=== PATIENT | female | born 1960 | race Caucasian/White ===

== ENCOUNTER 2017-06-20 11:24 | Emergency (ER) | payer OTHER ==
[~2017-06-20 11:24] MED LIST: EPIP0.3I IM; PRED20 PO
[2017-06-20 11:31] VITALS: BP 146/65; PULSE 92; RESP 22; TEMP 97.8; O2SAT 98
[2017-06-20] MEDS ORDERED: [UNRECOGNIZED DRUG - OTHER] (11:36)
[2017-06-20] MEDS ORDERED: INH PO (11:37)
[2017-06-20] MEDS ORDERED: SODIUM CHLOR 0.9% 1000 ML INJ 1,000 ML IV SCH (11:39)
[2017-06-20] MEDS ORDERED: SODIUM CHLORIDE 0.9% FLUSH 10 ML FLUSH IV FLUSH PRN (11:45)
[2017-06-20] MEDS ORDERED: RESP: ALBUTEROL 2.5 MG/3 ML NEB (SCH) INH ONE (11:45)
[2017-06-20] MEDS ORDERED: FAMOTIDINE 20 MG/2 ML VIAL IV PUSH ONE (11:45)
[2017-06-20] MEDS ORDERED: diphenhydrAMINE HCL 50 MG/ML VIAL IVP ONE (11:45)
[2017-06-20] MEDS ORDERED: methylPREDNISolone SOD SUCC 125 MG/2 ML VIAL IVP ONE (11:45)
--- NOTE | 2017-06-20 12:01 | PD ---
HPI Chief Complaint: Allergic/Adverse Reaction Time Seen by Provider: 11:33 Travel History International Travel<30 days: No Contact w/Intl Traveler<30days: No Traveled to known affect area: No History of Present Illness HPI The patient is a 56-year-old female who presents emergency department for allergic reaction to red ant bites. 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 The patient states she suffered multiple bites to the feet earlier today, developed a diffuse rash from the leg superiorly and shortness of breath with chest tightness. The patient self administered an epinephrine pen approximately 10- 15 minutes prior to arrival which has helped the patient's symptoms. The patient still complains of mild chest tightness without any wheezing, does have a history of asthma. She denies any swelling of the tongue or lips. She denies any nausea, vomiting, or abdominal pain. Symptoms are moderate, exacerbated after being exposed rate and bites, and slightly alleviated with an epinephrine pen. PFS Past Medical History Narrative Medical Asthma, allergic reaction to red ant bites Respiratory: Yes (LATENT TB) ?: Not Past Surgical History Narrative Surgical noncontributory Social History Alcohol Use: No Tobacco Use: No Substance Use: No Allergies-Medications (Allergen,Severity, Reaction): Coded Allergies: esomeprazole (Verified Allergy, Unknown, 06/20/17) tramadol (Verified Allergy, Unknown, 06/20/17) Uncoded Allergies: RED ANTS (Allergy, Severe, Anaphylaxis, 06/20/17) Reported Meds & Prescriptions Reported Meds & Active Scripts Active Reported [Inh] 100 Mg PO DAILY Review of Systems Except as stated in HPI: all other systems reviewed are Neg HENT: No: Lightheadedness Cardiovascular: Positive: Chest Pain or Discomfort (tightness) Respiratory: No: Shortness of Breath Gastrointestinal: No: Nausea, Vomiting, Abdominal Pain Musculoskeletal: Positive: Edema Skin: Positive Rash, Positive Itching Neurologic: No: Dizziness Physical Exam Narrative GENERAL: Awake, alert, pleasant 56-year-old female who appears her stated age and is in no acute respiratory distress. SKIN: Focused skin assessment warm/dry. Uric area and maculopapular rash from the knees superiorly on the thighs as well as over the anterior aspect of the abdomen and back. Rash is blanching. HEAD: Atraumatic. Normocephalic. EYES: Pupils equal and round. No scleral icterus. No injection or drainage. ENT: No nasal bleeding or discharge. Mucous membranes pink and moist. No angioedema of the uvula, tongue, or lips noted. NECK: Trachea midline. No JVD. CARDIOVASCULAR: Regular, tachycardic with a heart rate of 102. RESPIRATORY: No accessory muscle use. Clear to auscultation. Breath sounds equal bilaterally. No audible wheezing. GASTROINTESTINAL: Abdomen soft, non-tender, nondistended. No rebound tenderness. MUSCULOSKELETAL: No obvious deformities. No clubbing. No cyanosis. No edema. NEUROLOGICAL: Awake and alert. No obvious cranial nerve deficits. Motor grossly within normal limits. Normal speech. PSYCHIATRIC: Appropriate mood and affect; insight and judgment normal. Data Data Last Documented VS Vital Signs Date Time Temp Pulse Resp B/P (MAP) Pulse Ox O2 Delivery O2 Flow Rate FiO2 06/20/17 12:18 104 16 125/62 (83) 99 Room Air 06/20/17 11:31 97.8 Orders Orders Ecg Monitoring (06/20/17 11:39) Iv Access Insert/Monitor (06/20/17 11:39) Oximetry (06/20/17 11:39) Diphenhydramine Inj (Benadryl Inj) (06/20/17 11:45) Methylprednisolone So Succ Inj (Solumedr (06/20/17 11:45) Famotidine Inj (Pepcid Inj) (06/20/17 11:45) Albuterol Neb (Albuterol Neb) (06/20/17 11:45) Sodium Chlor 0.9% 1000 Ml Inj (Ns 1000 M (06/20/17 11:39) Sodium Chloride 0.9% Flush (Ns Flush) (06/20/17 11:45) MDM Medical Decision Making Medical Screen Exam Complete: Yes Emergency Medical Condition: Yes Medical Record Reviewed: Yes Differential Diagnosis differential diagnosis includes allergic reaction, anaphylaxis, angioedema, hypersensitivity reaction. Narrative Course IV was established, labs are drawn and sent, and the patient was placed on cardiac telemetry monitoring and continuous pulse oximetry monitoring prior to arrival. The patient self-administered epinephrine pen 0.3 mg IM to the right leg prior to arrival. Therefore, the patient was administered Solu-Medrol 125 mg intravenously, Benadryl 50 mg intravenously, Pepcid 20 mg intravenously, IV fluids 1 L normal saline bolus, and albuterol nebulizer. The patient was then monitored in the emergency department. The patient was evaluated several times , her symptoms had resolved. Patient is stable for outpatient follow-up. Diagnosis Primary Impression: Anaphylaxis Qualified Codes: T78.2XXA - Anaphylactic shock, unspecified, initial encounter Patient Instructions: General Instructions Additional Instructions: Medications as directed. Follow-up with your primary physician. Return if symptoms worsen or progress. Med/Other Pt SpecificInfo: Prescription(s) given Scripts Ranitidine (Zantac) 150 Mg Tab 150 MG PO BID for Reduce Stomach Acid for 5 Days, #10 TAB 0 Refills Prov: Hi Bryant MD 06/20/17 Diphenhydramine (Diphenhydramine) 25 Mg Cap 25 MG PO Q6H Y for ALLERGIES, #20 CAP 0 Refills Prov: Hi Bryant MD 06/20/17 Epinephrine Inj (Epipen 2-Lamin Inj) 0.3 Mg/0.3 Ml Pfpen 0.3 MG IM ONCE Y for ALLERGIC REACTION, #1 PACK 0 Refills Prov: Hi Bryant MD 06/20/17 Prednisone (Deltasone) 20 Mg Tab 40 MG PO DAILY for 4 Days, #8 TAB 0 Refills Prov: Hi Bryant MD 06/20/17 Disposition: 01 DISCHARGE HOME Condition: Stable Hi Bryant MD Jun 20, 2017 12:01
[2017-06-20 12:16] VITALS: RESP 16; O2SAT 99
[2017-06-20 12:18] VITALS: BP 125/62; PULSE 104; RESP 16; O2SAT 99
[2017-06-20] MEDS ORDERED: EPIP0.3I IM (14:12)
[2017-06-20] MEDS ORDERED: DIPH25CA PO (14:12)
[2017-06-20] MEDS ORDERED: PRED-503 PO (14:12)
[2017-06-20] MEDS ORDERED: ZANT150T2 PO (14:12)
[2017-06-20 14:17] VITALS: BP 94/46; TEMP 84
== END 2017-06-20 14:20 | disposition home or self-care (01) ==
LOC: PHED 11:24
DX: T78.2XXA Anaphylactic shock, unspecified, initial encounter (principal); T63.421A Toxic effect of venom of ants, accidental (unintentional), initial encounter; R06.02 Shortness of breath; R21 Rash and other nonspecific skin eruption
CPT/HCPCS: 94664; 96361; 96374; 96375; 99284; J1200; J2930; J7030; J7613